=== PATIENT | female | born 1995 | race African-American/Black ===

== ENCOUNTER 2024-08-05 18:00 | Inpatient (IN) | payer BC ==
[~2024-08-05 18:00] MED LIST: Bupivacaine/Epinephrine 0.25% 30 ML VIAL ONE
[2024-08-05] MEDS ORDERED: Tranexamic Acid 1,000 MG/10 ML VIAL IVP PRN (21:12)
[2024-08-05] MEDS ORDERED: hydrALAZINE 20 MG/ML VIAL SLOW IVP PRN (21:12)
[2024-08-05] MEDS ORDERED: Diphenoxylate HCl/Atropine Tablet PO PRN ×2 (21:12)
[2024-08-05] MEDS ORDERED: Zolpidem Tartrate 5 MG TAB PO PRN (21:12)
[2024-08-05] MEDS ORDERED: Acetaminophen 500 MG TAB PO PRN (21:12)
[2024-08-05] MEDS ORDERED: Misoprostol 200 MCG TAB PR PRN (21:12)
[2024-08-05] MEDS ORDERED: Ibuprofen 800 MG TAB PO PRN (21:12)
[2024-08-05] MEDS ORDERED: Ondansetron PF 4 MG/2 ML Vial IVP PRN (21:12)
[2024-08-05] MEDS ORDERED: Methylergonovine 0.2 MG/ML VIAL IM PRN (21:12)
[2024-08-05] MEDS ORDERED: Carboprost 250 MCG/ML AMP IM PRN (21:12)
[2024-08-05] MEDS ORDERED: Lidocaine 1% (PF) 30 ML VIAL SC PRN (21:12)
[2024-08-05] MEDS ORDERED: Promethazine HCl 25 MG/ML VIAL IM PRN (21:12)
[2024-08-05] MEDS ORDERED: HYDROcodone/Acetaminophen 5/325 mg Tablet PO PRN ×2 (21:12)
[2024-08-05 21:13] VITALS: BMI 27.3
[2024-08-05] MEDS: Lactated Ringer's 1,000 ML IV SCH (21:40)
[2024-08-05 21:59] LABS: Hematocrit 32.7 % (34.9-44.5); Hemoglobin 10.7 g/dL (12.0-15.5); Mean Corpuscular HGB CONC 32.7 g/dL (32.0-36.0); Mean Corpuscular Hemoglobin 29.8 pg (27.0-33.0); Mean Corpuscular Volume 91.1 fL (81.6-98.3); Mean Platelet Volume 11.3 fL (7.4-10.4); Platelet Count 187 10x3/uL (150-450); RBC Distribution Width 13.1 % (11.5-14.5); Red Blood Cell (RBC) Count 3.59 10x6/uL (3.90-5.03); White Blood Cell (WBC) Count 11.2 10x3/uL (3.5-10.5)
[2024-08-05] MEDS ORDERED: Oxytocin 30 units/NS 500 ML 500 ML IV SCH ×2 (22:00)
[2024-08-05] MEDS: Misoprostol 100 MCG TAB VAG SCH (22:18)
[2024-08-05] MEDS: Penicillin G Potassium 5 MILL.UNITS in Sodium Chloride 0.9% 100 ML IVPB SCH (22:19)
[2024-08-05 22:41] LABS: Syphilis Antibody Nonreactive (Nonreactive); Syphilis Antibody Index 0.04 S/CO (<1.00 Non-Reactive)
[2024-08-05 22:42] LABS: HBsAg Index 0.34 S/CO (0-0.99); Hep B Surf Ag - L&D Non-Reactive S/CO (NonReactive)
[2024-08-06] MEDS: Penicillin G 2.5 MILL.units 2.5 MILL.UNITS in Premix 1 BAG IVPB SCH (02:50)
[2024-08-06] MEDS: fentaNYL 50 mcg/mL 1 mL Vial SLOW IVP PRN (03:02)
[2024-08-06] MEDS: fentaNYL/Ropivacaine Epidural 100 ML ONE (08:30)
[2024-08-06] MEDS ORDERED: Ondansetron PF 4 MG/2 ML Vial IVP PRN (08:33)
[2024-08-06] MEDS ORDERED: Acetaminophen 325 MG TAB PO PRN (08:33)
[2024-08-06] MEDS ORDERED: Promethazine HCl 25 MG/ML VIAL IM PRN (08:33)
[2024-08-06] MEDS ORDERED: Naloxone HCl 0.4 mg/ml Vial IVP PRN ×2 (08:33)
[2024-08-06] MEDS ORDERED: ePHEDrine Sulfate 50 MG/10 ML VIAL SLOW IVP PRN (08:33)
[2024-08-06] MEDS ORDERED: Moisturizing Cream (Eucerin) 113 GM JAR TOP PRN (08:33)
[2024-08-06] MEDS ORDERED: Lactated Ringer's 500 ML IV PRN (08:33)
[2024-08-06] MEDS ORDERED: diphenhydrAMINE 50 MG/ML VIAL IVP PRN (08:33)
[2024-08-06] MEDS ORDERED: fentaNYL 2 mcg/Ropivacaine 0.2% Epidural 100 ML CADD EPIDURAL SCH (08:45)
[2024-08-06] MEDS ORDERED: Communication Order-Pharmacy FS SCH (08:45)
[2024-08-06] MEDS ORDERED: diphenhydrAMINE 25 MG CAP PO PRN (10:45)
[2024-08-06] MEDS ORDERED: Lanolin Ointment 7 GM TUBE TOP PRN (10:45)
[2024-08-06] MEDS ORDERED: hydrALAZINE 20 MG/ML VIAL SLOW IVP PRN (10:45)
[2024-08-06] MEDS ORDERED: Milk Of Magnesia 30 ML UDCUP PO PRN (10:45)
[2024-08-06] MEDS ORDERED: Preparation H Ointment 28 GM TUBE PR PRN (10:45)
[2024-08-06] MEDS ORDERED: Bisacodyl 10 MG SUPP PR PRN (10:45)
[2024-08-06] MEDS ORDERED: Benzocaine-Menthol 82.5 ML CAN TOP PRN (10:45)
[2024-08-06] MEDS: Boostrix 0.5 ML (Tdap) VIAL (>/=7 yrs of age) IM ONE (15:12)
[2024-08-06] MEDS: Oxytocin 30 units/NS 500 ML 500 ML ONE (15:12)
[2024-08-06] MEDS: Ibuprofen 800 MG TAB PO SCH (15:16)
[2024-08-06] MEDS: Ferrous Sulfate 325 MG TAB PO SCH (16:01)
[2024-08-06] MEDS: traMADol HCl 50 MG TAB PO PRN (16:23)
[2024-08-06] MEDS: Docusate 100 MG CAP PO SCH (21:29)
[2024-08-07 07:41] VITALS: BP 108/58; TEMP 97.5
[2024-08-07] MEDS: Prenatal Vitamin 1 TAB PO SCH (08:23)
== END 2024-08-07 13:00 | disposition home or self-care (01) | DRG 807 ==
LOC: CSHLD 20:07 → CSHPP 08-06 14:15
PROVIDERS: ADMIT Obstetrics & Gynecology; ATTEND Obstetrics & Gynecology
PROC: 10E0XZZ Delivery of Products of Conception, External Approach (ICD-10-PCS; principal; 2024-08-06)
PROC: 0HQ9XZZ Repair Perineum Skin, External Approach (ICD-10-PCS; 2024-08-06)
DX: O70.0 First degree perineal laceration during delivery (principal); Z37.0 Single live birth; Z3A.39 39 weeks gestation of pregnancy
CPT/HCPCS: 51702; 85027; 86780; 86850; 86900; 86901; 87340; J2540; J3010; J7120